=== PATIENT | male | born 1980 ===

== ENCOUNTER → 2024-06-07 | Outpatient (CLI) | payer BC ==
[2024-06-07 11:11] LABS: BASO # 0.03 K/mm3 (0.02-0.10); EOS # 0.26 K/mm3 (0.04-0.40); EOS % 5.7 % (0.0-4.0); HEMATOCRIT 44.9 % (42.0-52.0); HEMOGLOBIN 14.7 g/dL (13.5-18.0); LYMPH# 1.53 K/mm3 (1.50-4.00); MEAN CELL VOLUME 92 fl (78-100); MEAN CORPUSCULAR HEMOGLOBIN 30 pg (27-31); MEAN CORPUSCULAR HGB CONC 33 g/dL (33-37); MEAN PLATELET VOLUME 10.2 fl (7.4-10.4); MONO # 0.44 K/mm3 (0.20-0.80); NEU # 2.31 K/mm3 (1.40-6.50); PLATELET COUNT 218 K/mm3 (130-400); RED BLOOD COUNT 4.88 M/mm3 (4.20-5.60); RED CELL DISTRIBUTION WIDTH 13.1 % (11.5-14.5); WHITE BLOOD COUNT 4.6 K/mm3 (4.8-10.8)
[2024-06-07 11:18] LABS: ALBUMIN 4.5 g/dL (3.5-5.0)
[2024-06-07 11:19] LABS: CALCIUM 9.3 mg/dL (8.3-10.5)
[2024-06-07 11:21] LABS: TOTAL PROTEIN 7.1 g/dL (6.4-8.3)
[2024-06-07 11:23] LABS: TOTAL BILIRUBIN 2.2 mg/dL (0.2-1.2)
== END ==
LOC: LAB 10:58
PROVIDERS: Internal Medicine
DX: Z00.00 Encounter for general adult medical examination without abnormal findings (principal); Z12.5 Encounter for screening for malignant neoplasm of prostate

== ENCOUNTER 2024-10-30 06:08 | Emergency (ER) | payer OTHER ==
[~2024-10-30] VITALS: Ht 185.4 cm; Wt 125.0 kg
[2024-10-30] MEDS ORDERED: AMOXICILLIN875 MG (06:20)
[2024-10-30] MEDS ORDERED: Cephalexin 500 MG CAP PO ONE (07:15)
[2024-10-30] MEDS ORDERED: CEPHALEXIN500 M2 PO (07:23)
[2024-10-30 07:40] VITALS: BP 153/107
== END 2024-10-30 07:40 | disposition home or self-care (01) ==
LOC: ED 06:08
DX: S61.313A Laceration without foreign body of left middle finger with damage to nail, initial encounter (principal); W23.0XXA Caught, crushed, jammed, or pinched between moving objects, initial encounter; Y92.89 Other specified places as the place of occurrence of the external cause; Y99.0 Civilian activity done for income or pay